=== PATIENT | male | born 1970 | race Caucasian/White ===

== ENCOUNTER 2021-04-28 19:06 | Emergency (ER) | payer BC | END 2021-04-28 20:15 | disposition home or self-care (01) | LOC: LB.ED 19:06 | DX: S83.8X2A Sprain of other specified parts of left knee, initial encounter (principal); Z72.0 Tobacco use | CPT/HCPCS: 36415; 85379; 99281; 99283 ==

== ENCOUNTER 2021-05-13 15:25 | Emergency (ER) | payer BC ==
[2021-05-13] MEDS: Albuterol/Ipratropium 3.0-0.5 MG/3 ML Neb Soln NEB ONE (15:55)
[2021-05-13] MEDS ORDERED: predniSONE 10 MG Tab ONE (16:00)
[2021-05-13 16:06] VITALS: BP 147/93; PULSE 92
== END 2021-05-13 16:30 | disposition home or self-care (01) ==
LOC: LB.ED 15:40
DX: T59.811A Toxic effect of smoke, accidental (unintentional), initial encounter (principal)
CPT/HCPCS: 99283; J7512; J7620

== ENCOUNTER 2025-01-16 15:20 | Emergency (ER) | payer OTHER | END 2025-01-16 18:05 | disposition home or self-care (01) | LOC: LB.ED 15:20 | DX: S63.281A Dislocation of proximal interphalangeal joint of left index finger, initial encounter (principal); F17.200 Nicotine dependence, unspecified, uncomplicated; W22.8XXA Striking against or struck by other objects, initial encounter | CPT/HCPCS: 26770; 73120-LT; 99283-25 ==